=== PATIENT | male | born 1950 | race Caucasian/White ===

== ENCOUNTER 2017-06-05 15:49 | Emergency (ER) | payer MEDICARE ==
[~2017-06-05] VITALS: Ht 182.9 cm; Wt 138.3 kg
[2017-06-05] MEDS ORDERED: ULTRAM50 MG PO (16:51)
[2017-06-05] MEDS ORDERED: METFORMIN HCL500 MG PO (16:51)
[2017-06-05] MEDS ORDERED: PREDNISONE5 MG PO (16:51)
[2017-06-05] MEDS ORDERED: METOPROLOL TART50 MG PO (16:51)
--- NOTE | 2017-06-05 17:14 | Diagnostic Imaging Report ---
Examination: CT BRAIN WITHOUT CONTRAST History:Left-sided weakness Comparison studies:None Technique: Axial images were obtained from the skull base to the vertex. Coronal and sagittal images reconstructed from the axial data. Intravenous contrast: None Findings: Scalp: No abnormalities. Bones: No fractures, blastic or lytic lesions. Brain sulci: Appropriate for age. Ventricles: The ventricular size is out of proportion with respect to cerebral convexity sulci, concerning for a communicating type of hydrocephalus, such as normal pressure hydrocephalus. Extra-axial space: No abnormalities. Parenchyma: No abnormal densities. No masses, hemorrhage, acute or chronic vascular insults. Sellar/suprasellar region: No abnormalities. Craniocervical junction: Patent foramen magnum. No Chiari one malformation. Incidental findings: Atherosclerotic calcification of the cavernous and supraclinoid internal carotid and V4 segments of the bilateral vertebral arteries. Impression: 1. No acute intracranial abnormalities. 2. Findings as described above are concerning for normal pressure hydrocephalus. Signed by: Dr. Cari Stanley M.D. on 06/05/2017 5:11 PM
== END 2017-06-05 18:55 | disposition home or self-care (01) ==
LOC: ER 15:49
DX: G51.0 Bell's palsy (principal); I10 Essential (primary) hypertension
CPT/HCPCS: 70450; 99283

== ENCOUNTER → 2018-12-16 | Outpatient (CLI) | payer MEDICARE ==
[~2018-12-16] MED LIST: METFORMIN HCL500 MG PO; METOPROLOL TART50 MG PO; PREDNISONE5 MG PO; ULTRAM50 MG PO
--- NOTE | 2018-12-16 14:21 | Diagnostic Imaging Report ---
Frontal and lateral views of the chest. HISTORY: Bronchitis, pneumonia, sinusitis COMPARISON: Images from a chest radiograph July 08, 2011 DISCUSSION: Soft tissue attenuation partially limits sensitivity of the exam. Lungs: Diffuse mildly increased peribronchial interstitial markings. No evidence of a consolidative pneumonia or pulmonary alveolar edema. Pleura: No pleural effusion or pneumothorax. Heart and mediastinum: The cardiomediastinal silhouette appears unremarkable. Bones and soft tissues: Mild multilevel degenerative disc changes. IMPRESSION: 1. Findings compatible with a nonspecific bronchitis. 2. No consolidative pneumonia. Signed by: Dr. Noe Villalba D.O., M.M.M. on 12/16/2018 2:18 PM
--- NOTE | 2018-12-16 14:23 | Diagnostic Imaging Report ---
SINUS SERIES - 4 Images HISTORY: Sinusitis, congestion COMPARISON: None available. FINDINGS: The study is inherently limited secondary to superimposed structures. On the frontal views, mild right anterior oblique rotation. Bones: The paranasal sinuses and mastoid air cells appear well aerated. Soft tissues: The soft tissues appear unremarkable. IMPRESSION: No acute radiographic abnormality. Signed by: Dr. Noe Villalba D.O., M.M.M. on 12/16/2018 2:20 PM
== END ==
LOC: RAD 12:13
PROVIDERS: ATTEND Internal Medicine
DX: R09.89 Other specified symptoms and signs involving the circulatory and respiratory systems (principal); J40 Bronchitis, not specified as acute or chronic
CPT/HCPCS: 70220; 71046